=== PATIENT | female | born 1970 | race American Indian/Alaskan Native ===

== ENCOUNTER 2016-12-06 22:31 | Emergency (ER) | payer OTHER ==
--- NOTE | 2016-12-07 02:41 | Emergency Department Report ---
HPI - General Chief Complaint: Neck Pain/Injury Time Seen by Provider: 12/07/16 01:58 - HPI HPI: 46-year-old female presents to the ED complaining of right sided shoulder back pain for the past 2 weeks. She denies any trauma and states the pain is throbbing, aching in nature localized to her upper back region. She states pain is aggravated by pressing on. ED Past Medical Hx - Past Medical History Previous Medical History?: No - Surgical History Past Surgical History?: No - Social History Smoking Status: Never Smoker Substance Use Type: None - Medications Home Medications: Home Medications Medication Instructions Recorded Confirmed Last Taken Type Cyclobenzaprine [Flexeril] 10 mg PO QHS #20 tablet 12/07/16 Unknown Rx Naproxen [Naprosyn] 500 mg PO BID #30 tablet 12/07/16 Unknown Rx ED Review of Systems ROS: Stated complaint: NECK AND BACK PAIN Other details as noted in HPI Constitutional: denies: chills, fever Eyes: denies: eye pain, eye discharge, vision change ENT: denies: ear pain, throat pain Respiratory: denies: cough, shortness of breath, wheezing Cardiovascular: denies: chest pain, palpitations Endocrine: no symptoms reported Gastrointestinal: denies: abdominal pain, nausea, diarrhea Genitourinary: denies: urgency, dysuria, discharge Musculoskeletal: denies: back pain, joint swelling, arthralgia Skin: denies: rash, lesions Neurological: denies: headache, weakness, paresthesias Psychiatric: denies: anxiety, depression Hematological/Lymphatic: denies: easy bleeding, easy bruising Physical Exam - Physical Exam Vital Signs: Vital Signs 12/06/16 23:02 Temperature 97.9 F Pulse Rate 65 Respiratory 16 Rate Blood Pressure 117/87 [Right] O2 Sat by Pulse 100 Oximetry Physical Exam: GENERAL: Alert and oriented x3, no apparent distress, resting comfortable in the room on the bed, Normal Gait, atraumatic. HEAD: Head is normocephalic and a-traumatic. NECK: Supple. Non edematous, No lymphadenopathy or thyromegaly. No C-spine tenderness LUNGS: Symetrical with respiration, No wheezing, no rales or crackles, CTAB. HEART: S1, S2 present, regular rate and rhythm without murmur, no rubs, no gallops. Non tender to palpation EXTREMITIES/MUSCULOSKELETAL: No cyanosis, clubbing, rash, lesions or edema. Full ROM bilaterally. UE/LE Pulses 2+ bilaterally. LE and UE 5+ strength bilaterally, tenderness palpation of the scapular region right-sided, no spinal tenderness NEUROLOGIC: The patient is cooperative with no focal neurologic deficits. ED Course Vital Signs 12/06/16 23:02 Temperature 97.9 F Pulse Rate 65 Respiratory 16 Rate Blood Pressure 117/87 [Right] O2 Sat by Pulse 100 Oximetry ED Medical Decision Making - Medical Decision Making The old female presents with a showed a back sprain ED course: Patient to go home on trial of Motrin and muscle relaxants for pain. Discussed patient to apply heat therapy and defer from strenuous activities this couple of days. Discussed worsened symptoms return to ED. Discussed to follow up with primary care physician Discussed patient drowsiness effects of Flexeril and not to take while driving Patient is comfortable she is in no acute distress Vital signs are normal. Patient understands all instructions given and states she will follow up Discussed the patient is symptoms worsen to return to ED. Critical care attestation.: If time is entered above; I have spent that time in minutes in the direct care of this critically ill patient, excluding procedure time. ED Disposition Clinical Impression: Muscle strain of right upper back Qualifiers: Encounter type: initial encounter Qualified Code(s): S29.012A - Strain of muscle and tendon of back wall of thorax, initial encounter Disposition: -01 TO HOME OR SELFCARE Is pt being admited?: No Does the pt Need Aspirin: No Condition: Stable Instructions: Muscle Strain (ED), Heat Pack Application (ED), Trigger Point Pain (ED) Prescriptions: Cyclobenzaprine [Flexeril] 10 mg PO QHS #20 tablet Naproxen [Naprosyn] 500 mg PO BID #30 tablet Referrals: PRIMARY CARE, [Primary Care Provider] - 3-5 Days Forms: Accompanied Note, Work/School Release Form(ED) Time of Disposition: 02:42
[2016-12-07 04:01] VITALS: BP 112/69
== END 2016-12-07 04:01 | disposition home or self-care (01) ==
LOC: ED 22:31
DX: S29.012A Strain of muscle and tendon of back wall of thorax, initial encounter (principal); X58.XXXA Exposure to other specified factors, initial encounter; Y93.89 Activity, other specified; Y99.8 Other external cause status; Y92.89 Other specified places as the place of occurrence of the external cause
CPT/HCPCS: 99282

== ENCOUNTER 2017-02-20 11:54 | Emergency (ER) | payer SELFPAY ==
[2017-02-20 12:05] VITALS: BP 134/92
== END 2017-02-20 12:49 | disposition left against medical advice (07) ==
LOC: ED 11:54
DX: Z53.21 Procedure and treatment not carried out due to patient leaving prior to being seen by health care provider (principal)

== ENCOUNTER 2017-08-19 11:37 | Emergency (ER) | payer OTHER ==
[2017-08-19] MEDS ORDERED: NACL 0.9% 1000 ML IV ONE (15:21)
[2017-08-19] MEDS ORDERED: ZOFRAN IV ONE (15:22)
[2017-08-19] MEDS ORDERED: PEPCID IV ONE (15:22)
[2017-08-19] MEDS ORDERED: TORADOL IV ONE (15:22)
--- NOTE | 2017-08-19 15:24 | Emergency Department Report ---
Blank Doc - Documentation Documentation: Patient is a 47-year-old Female who is presenting with 3 days of upper abdominal pain nausea vomiting or fever. Patient also states she has diarrhea as well and now has some paresthesias in her feet. Brief physical exam patient is tachycardic and tachypneic is tender in the epigastrium. Patient is febrile. Suspected sepsis order set has been initiated and patient will receive IV fluids and nausea medicines meds CT abdomen and pelvis lab work is been ordered.
[2017-08-19 15:53] LABS: Hematocrit 37.1 % (30.3-42.9); Hemoglobin 12.5 gm/dl (10.1-14.3); Mean Corpuscular HGB Conc 34 % (30-34); Mean Corpuscular Hemoglobin 30 pg (28-32); Mean Corpuscular Volume 88 fl (79-97); Platelet Count 109 K/mm3 (140-440); Red Cell Distribution Width 14.5 % (13.2-15.2)
[2017-08-19] MEDS ORDERED: ZOSYN/NS 4.5GM/100ML 4.5 GM/100 ML VIAL IV ONE (16:00)
[2017-08-19 16:15] LABS: Albumin 3.7 g/dL (3.9-5)
[2017-08-19] MEDS ORDERED: K-DUR PO ONE (16:39)
[2017-08-19 16:40] LABS: Bacteria,Urine 2+ /HPF (Negative); Bilirubin,Urine NEG (Negative); Blood,Urine LG (Negative); Color,Urine Red (Yellow)
[2017-08-19 16:42] LABS: WBC,Urine > 182.0 /HPF (0.0-6.0)
[2017-08-19] MEDS ORDERED: MOTRIN PO ONE (17:15)
--- NOTE | 2017-08-19 17:23 | History and Physical Report ---
History of Present Illness Chief complaint: My stomach hurts History of present illness: 47 YO Female with Bipolar Disorder, Depression, presents to ED for evaluation. Pt states that she has experienced pain, nausea, and multiple episodes of vomiting over the past 3 days. Pt states that pain is 8/10, colicky, worse with movement. Pt seen and evaluated in ED and found to have sepsis, and pyelonephritis secondary to a Left Obstruction ureteric stone with concomitant hydronephrosis. Pt treated wit IV antibiotics. No urology coverage at this time. Pt requires urologic evaluation and intervention. Pt seen and evaluated and informed of diagnosis, and treatment plan. Patient denies fever, chills, chest pain, shortness of breathe, back pain,palpitations, hematuria, BRBPR, headache, trauma, productive cough or recent ill contacts. Past History Past Medical History: other (bipolar, ) Past Surgical History: Social history: single. denies: smoking, alcohol abuse, prescription drug abuse Family history: hypertension Medications and Allergies Allergies Allergy/AdvReac Type Severity Reaction Status Date / Time No Known Allergies Allergy Verified 08/19/17 11:48 Home Medications Medication Instructions Recorded Confirmed Last Taken Type Cyclobenzaprine [Flexeril] 10 mg PO QHS #20 tablet 12/07/16 Unknown Rx Naproxen [Naprosyn] 500 mg PO BID #30 tablet 12/07/16 Unknown Rx Review of Systems Constitutional: no weight loss, no weight gain, no fever, no chills Ears, nose, mouth and throat: no ear pain, no ear discharge, no tinnitis, no decreased hearing, no nose pain Breasts: no change in shape, no swelling, no mass Cardiovascular: no chest pain, no orthopnea, no palpitations, no rapid/ irregular heart beat, no edema, no syncope Respiratory: no cough, no cough with sputum, no excessive sputum, no hemoptysis , no shortness of breath Gastrointestinal: abdominal pain, nausea, vomiting Genitourinary Female: flank pain (Left), no pelvic pain, no menorrhagia, no dysuria, no urgency, no stress incontinence, no incomplete emptying Rectal: no pain, no incontinence, no bleeding, no itching Musculoskeletal: no neck stiffness, no neck pain, no shooting arm pain, no arm numbness/tingling, no low back pain, no shooting leg pain Integumentary: no rash, no pruritis, no redness, no sores, no wounds, no jaundice Neurological: no head injury, no transient paralysis, no paralysis, no weakness , no tingling Psychiatric: no anxiety, no sleep disturbances, no insomnia, no hypersomnia, no change in appetite, no change in libido Endocrine: no cold intolerance, no heat intolerance, no polyphagia, no excessive thirst, no polydipsia, no polyuria Hematologic/Lymphatic: no easy bruising, no easy bleeding, no lymphadenopathy, no lymphedema Allergic/Immunologic: no urticaria, no allergic rhinitis, no wheezing, no persistent infections, no anaphylaxis, no angioedema Exam - Constitutional Vitals: Temp Pulse Resp BP Pulse Ox 102.9 F H 104 H 16 111/54 100 08/19/17 16:24 08/19/17 16:24 08/19/17 16:24 08/19/17 16:24 08/19/17 16:24 General appearance: Present: mild distress - EENT Eyes: Present: PERRL ENT: hearing intact, clear oral mucosa - Neck Neck: Present: supple, normal ROM - Respiratory Respiratory effort: normal Respiratory: bilateral: CTA - Cardiovascular Heart Sounds: Present: S1 & S2. Absent: rub, click - Extremities Extremities: pulses symmetrical, No edema Peripheral Pulses: abnormal (capillary refill greater than 3.6 seconds.) - Abdominal General gastrointestinal: Present: soft, tender, non-distended, normal bowel sounds. Absent: mass, hernia Female genitourinary: Present: normal - Integumentary Integumentary: Present: clear, warm, dry - Musculoskeletal Musculoskeletal: gait normal, strength equal bilaterally - Psychiatric Psychiatric: appropriate mood/affect, intact judgment & insight - Neurologic Neurologic: CNII-XII intact, moves all extremities Results - Labs CBC & Chem 7: 08/19/17 15:26 08/19/17 15:26 Labs: Abnormal lab results 08/19/17 08/19/17 08/19/17 Range/Units 15:26 15:26 16:11 WBC 23.4 H (4.5-11.0) K/mm3 Plt Count 109 L (140-440) K/mm3 Sodium 134 L (137-145) mmol/L Potassium 3.2 L (3.6-5.0) mmol/L Chloride 93.8 L (98-107) mmol/L Glucose 109 H (65-100) mg/dL Total Bilirubin 1.40 H (0.1-1.2) mg/dL AST 67 H (5-40) units/L ALT 63 H (7-56) units/L Total Protein 8.3 H (6.3-8.2) g/dL Albumin 3.7 L (3.9-5) g/dL Lipase 9 L (13-60) units/L Urine WBC (Auto) > 182.0 H (0.0-6.0) /HPF Assessment and Plan - Patient Problems (1) Sepsis Current Visit: Yes Status: Acute Qualifiers: Sepsis type: sepsis due to unspecified organism Qualified Code(s): A41.9 - Sepsis, unspecified organism Plan to address problem: IV antibiotics, IVF, supportive care. Pending transfer to urology intervention. (2) Urinary obstruction Current Visit: Yes Status: Acute Plan to address problem: Urology evaluation, and possible placement of percutaneous nephrostomy tube.
--- NOTE | 2017-08-19 17:30 | Cat Scan Report ---
FINAL REPORT PROCEDURE: CT ABDOMEN PELVIS W CON TECHNIQUE: Computerized axial tomography of the abdomen and pelvis was performed after the IV injection of iodinated nonionic contrast. HISTORY: Fever/Sepsis COMPARISON: No prior studies are available for comparison. FINDINGS: Visualized lower thorax: No significant abnormality. Liver: Normal size and attenuation. Spleen: Normal size and attenuation. Gallbladder and biliary system: Normal. Pancreas: Normal. Adrenals: Normal. Kidneys: There is irregular enhancement of the left renal cortex with moderate left hydronephrosis and hydroureter down to a 8 x 5 millimeter stone in the proximal left ureter. The right collecting system is a normal appearance.. GI tract: No obstruction. No ileus or enteritis. The cecum, appendix and colon are normal. Lymph nodes and mesentery: Normal. Vasculature: Normal. Bladder: Normal. Reproductive organs: The uterus is enlarged with suspected fibroid formation. No ovarian masses are noted on this study.. Peritoneum: Moderate fluid lower pelvis.. Musculoskeletal structures: Mild degenerative changes of the lumbar spine.. Other: Small fat containing left inguinal hernia.. IMPRESSION: Moderate left hydronephrosis and proximal hydroureter down to an 8 x 5 millimeter stone in the proximal left ureter. Irregular enhancement of the left renal cortex may represent early pyelonephritis. No evidence of intestinal obstruction. The appendix is normal. The uterus is enlarged with suspected fibroid formation.
[2017-08-19 17:35] LABS: HCG Qualitative,Urine Negative (Negative)
[2017-08-19 17:42] LABS: Basophils % (Manual) 0 % (0.0-1.8); Eosinophils % (Manual) 0 % (0.0-4.3); RBC Morphology Normal; Total Cells Counted 100
--- NOTE | 2017-08-19 17:42 | Emergency Department Report ---
ED Abdominal Pain HPI - General Chief Complaint: Abdominal Pain Stated Complaint: STOMACH PAIN Time Seen by Provider: 08/19/17 15:12 Source: patient Mode of arrival: Wheelchair Limitations: No Limitations - History of Present Illness Initial Comments: This is a 47-year-old female nontoxic, well nourished in appearance, no acute signs of distress presents to the ED with c/o of upper abdominal pain with nausea, vomiting and fever x2 days. Patient describes abdominal pain as cramping and aching with level of 8/10. Patient also stated had episodes of diarrhea and dysuria. Patient denies any chest pain, shortness of breathe, back pain, numbness, tingling, headache, stiff neck. Patient denies any recent travels or long car rides. Patient denies any allergies. Denies PMH. MD Complaint: abdominal pain -: days(s) (2) Location: diffuse Radiation: none Migration to: no migration Severity: mild Severity scale (0 -10): 8 Quality: cramping, aching Consistency: constant Improves With: nothing Worsens With: nothing Associated Symptoms: nausea, vomiting, diarrhea. denies: fever, chills, constipation, dysuria, hematemesis, hematochezia, melena, hematuria, anorexia, syncope - Related Data Previous Rx's Medication Instructions Recorded Last Taken Type Cyclobenzaprine [Flexeril] 10 mg PO QHS #20 tablet 12/07/16 Unknown Rx Naproxen [Naprosyn] 500 mg PO BID #30 tablet 12/07/16 Unknown Rx Allergies Allergy/AdvReac Type Severity Reaction Status Date / Time No Known Allergies Allergy Verified 08/19/17 11:48 ED Review of Systems ROS: Stated complaint: STOMACH PAIN Other details as noted in HPI Constitutional: denies: chills, fever Eyes: denies: eye pain, eye discharge, vision change ENT: denies: ear pain, throat pain Respiratory: denies: cough, shortness of breath, wheezing Cardiovascular: denies: chest pain, palpitations Endocrine: no symptoms reported Gastrointestinal: abdominal pain, nausea, vomiting, diarrhea. denies: constipation Genitourinary: denies: urgency, dysuria, discharge Musculoskeletal: denies: back pain, joint swelling, arthralgia Skin: denies: rash, lesions Neurological: denies: headache, weakness, paresthesias Psychiatric: denies: anxiety, depression Hematological/Lymphatic: denies: easy bleeding, easy bruising ED Past Medical Hx - Past Medical History Hx Psychiatric Treatment: Yes (depression, bi-polar, schizophrenia) - Surgical History Additional Surgical History: - Social History Smoking Status: Never Smoker Substance Use Type: None - Medications Home Medications: Home Medications Medication Instructions Recorded Confirmed Last Taken Type Cyclobenzaprine [Flexeril] 10 mg PO QHS #20 tablet 12/07/16 Unknown Rx Naproxen [Naprosyn] 500 mg PO BID #30 tablet 12/07/16 Unknown Rx ED Physical Exam - General Limitations: No Limitations General appearance: alert, in no apparent distress - Head Head exam: Present: atraumatic, normocephalic - Eye Eye exam: Present: normal appearance Pupils: Present: normal accommodation - ENT ENT exam: Present: normal exam, mucous membranes moist - Neck Neck exam: Present: normal inspection, full ROM. Absent: tenderness, meningismus - Respiratory Respiratory exam: Present: normal lung sounds bilaterally. Absent: respiratory distress, wheezes, rales, rhonchi, stridor, chest wall tenderness, accessory muscle use, decreased breath sounds, prolonged expiratory - Cardiovascular Cardiovascular Exam: Present: regular rate, normal rhythm, tachycardia, normal heart sounds. Absent: irregular rhythm, systolic murmur, diastolic murmur, rubs , gallop - GI/Abdominal GI/Abdominal exam: Present: soft, tenderness (diffuse), normal bowel sounds. Absent: distended, guarding, rebound, rigid, diminished bowel sounds - Rectal Rectal exam: Present: deferred - Extremities Exam Extremities exam: Present: normal inspection, full ROM, normal capillary refill. Absent: tenderness - Back Exam Back exam: Present: normal inspection, full ROM. Absent: tenderness, CVA tenderness (R), CVA tenderness (L) - Neurological Exam Neurological exam: Present: alert, oriented X3, normal gait - Psychiatric Psychiatric exam: Present: normal affect, normal mood - Skin Skin exam: Present: warm, dry, intact, normal color. Absent: rash ED Course Vital Signs 08/19/17 08/19/17 08/19/17 11:50 16:09 16:24 Temperature 100.8 F H 102.9 F H Pulse Rate 108 H 104 H Respiratory 20 18 16 Rate Blood Pressure 133/109 Blood Pressure 111/54 [Right] O2 Sat by Pulse 98 98 100 Oximetry 08/19/17 17:55 Temperature 100.2 F H Pulse Rate 99 H Respiratory 16 Rate Blood Pressure Blood Pressure 108/70 [Right] O2 Sat by Pulse 98 Oximetry - Reevaluation(s) Reevaluation #1: 08/19/17 17:54 Patient is speaking in full sentences with no signs of distress noted. - Consultations Consultation #1: 08/19/17 17:55 Patient has been consulted with Dr. Zavala about patient history, physical exam , and labs and examined and screened patient and agrees to ED plan of care. Consultation #2: 08/19/17 17:54 Dr. Cox from [facility] was consulted and accepts patient to his services. Pending transfer. Patient is stable with no distress. ED Medical Decision Making - Lab Data Result diagrams: 08/19/17 15:26 08/19/17 15:26 - Medical Decision Making 47-year-old female that presents with hydronephrosis. Patient is stable and was examined by me and Dr. Zavala. Code Sepsis was initiated right away when Dr. Zavala examined patient. Patient received Normal saline and antibitocs in the ED. UA obtained. Patient was discussed with Dr. Cox from [facility] and accepts patient to his services. Patient was put on radiation monitor immediately. At time of transfer, the patient does not seem toxic or ill in appearance. No acute signs of distress noted. Patient agrees to transfer treatment plan of care. No further questions noted by the patient. Critical care attestation.: If time is entered above; I have spent that time in minutes in the direct care of this critically ill patient, excluding procedure time. ED Disposition Clinical Impression: Pyelonephritis Hydronephrosis Qualifiers: Hydronephrosis type: unspecified Qualified Code(s): N13.30 - Unspecified hydronephrosis Sepsis Qualifiers: Sepsis type: sepsis due to unspecified organism Qualified Code(s): A41.9 - Sepsis, unspecified organism Disposition: DC/TX-70 ANOTHER TYPE [facility]THCARE Is pt being admited?: No Condition: Stable Referrals: PRIMARY CARE, [Primary Care Provider] - 3-5 Days
[2017-08-19 20:04] VITALS: BP 115/83
== END 2017-08-19 20:20 | disposition other institution (70) ==
LOC: ED 11:37
DX: A41.9 Sepsis, unspecified organism (principal); N12 Tubulo-interstitial nephritis, not specified as acute or chronic; N13.30 Unspecified hydronephrosis; F31.9 Bipolar disorder, unspecified; F20.9 Schizophrenia, unspecified
CPT/HCPCS: 36415; 74177; 80053; 81001; 81025; 82140; 83690; 85007; 85025; 86403; 87040; 96361; 96365; 96375; 99285; J1885; J2405; J2543; J7030; Q9967; 87186

== ENCOUNTER 2020-05-29 12:52 | Emergency (ER) | payer SELFPAY ==
[2020-05-29 13:33] VITALS: BP 114/72
--- NOTE | 2020-05-29 15:11 | Emergency Department Report ---
ED General Adult HPI - General Chief complaint: Extremity Injury, Upper Stated complaint: LEFT ARM PAIN Time Seen by Provider: 05/29/20 14:21 Source: patient Mode of arrival: Ambulatory Limitations: No Limitations - History of Present Illness Initial comments: Patient is a 49-year-old female presents emergency room complaints of left shoulder pain that began 3 to 4 days ago. She states that she had this once in the past and it was gas. She denies any fall or injury. She denies any numbness, weakness, chest pain, shortness of breath, diaphoresis, nausea, vomiting. Has a past medical history of schizophrenia and bipolar. No allergies to medications. She denies any SI or HI. She is a former smoker. - Related Data Previous Rx's Medication Instructions Recorded Last Taken Type Cyclobenzaprine [Flexeril] 10 mg PO QHS #20 tablet 12/07/16 Unknown Rx Naproxen [Naprosyn] 500 mg PO BID #30 tablet 12/07/16 Unknown Rx Naproxen 375 mg PO BID PRN #14 tablet. 05/29/20 Unknown Rx methOCARBAMOL [Robaxin TAB] 500 mg PO BID PRN #14 tab 05/29/20 Unknown Rx Allergies Allergy/AdvReac Type Severity Reaction Status Date / Time No Known Allergies Allergy Verified 08/19/17 11:48 ED Review of Systems ROS: Stated complaint: LEFT ARM PAIN Other details as noted in HPI Comment: All other systems reviewed and negative ED Past Medical Hx - Past Medical History Previous Medical History?: Yes Hx Psychiatric Treatment: Yes (depression, bi-polar, schizophrenia) - Surgical History Additional Surgical History: - Social History Smoking Status: Never Smoker Substance Use Type: None - Medications Home Medications: Home Medications Medication Instructions Recorded Confirmed Last Taken Type Cyclobenzaprine [Flexeril] 10 mg PO QHS #20 tablet 12/07/16 Unknown Rx Naproxen [Naprosyn] 500 mg PO BID #30 tablet 12/07/16 Unknown Rx Naproxen 375 mg PO BID PRN #14 tablet. 05/29/20 Unknown Rx methOCARBAMOL [Robaxin TAB] 500 mg PO BID PRN #14 tab 05/29/20 Unknown Rx ED Physical Exam - General Limitations: No Limitations General appearance: alert, in no apparent distress - Head Head exam: Present: atraumatic, normocephalic - Eye Eye exam: Present: normal appearance - ENT ENT exam: Present: mucous membranes moist - Respiratory Respiratory exam: Present: normal lung sounds bilaterally. Absent: respiratory distress, wheezes, rales, rhonchi, stridor, chest wall tenderness, accessory mu scle use, decreased breath sounds, prolonged expiratory - Cardiovascular Cardiovascular Exam: Present: regular rate, normal rhythm, normal heart sounds. Absent: systolic murmur, diastolic murmur, rubs, gallop - Extremities Exam Extremities exam: Present: other (no bony ttp of the BUE, FROM of the BUE, no deformity, no ecchymosis, no edema, no skin changes, no sulcus sign, clavicles are equal, no clavicular ttp, neurovascularly intact) - Neurological Exam Neurological exam: Present: alert, oriented X3, CN II-XII intact, normal gait. Absent: motor sensory deficit - Psychiatric Psychiatric exam: Present: normal affect, normal mood - Skin Skin exam: Present: warm, dry, intact ED Course Vital Signs 05/29/20 13:27 Temperature 98 F Pulse Rate 68 Respiratory 18 Rate Blood Pressure 114/72 O2 Sat by Pulse 98 Oximetry ED Medical Decision Making - Lab Data Result diagrams: 05/29/20 15:18 05/29/20 15:18 Lab Results 05/29/20 05/29/20 Range/Units 15:18 15:18 WBC 4.0 L (4.5-11.0) K/mm3 RBC 3.82 (3.65-5.03) M/mm3 Hgb 11.8 (10.1-14.3) gm/dl Hct 35.5 (30.3-42.9) % MCV 93 (79-97) fl MCH 31 (28-32) pg MCHC 33 (30-34) % RDW 13.7 (13.2-15.2) % Plt Count 148 (140-440) K/mm3 Lymph % (Auto) 41.1 H (13.4-35.0) % Mclennan % (Auto) 8.7 H (0.0-7.3) % Eos % (Auto) 1.6 (0.0-4.3) % Baso % (Auto) 0.5 (0.0-1.8) % Lymph # (Auto) 1.6 (1.2-5.4) K/mm3 Mclennan # (Auto) 0.3 (0.0-0.8) K/mm3 Eos # (Auto) 0.1 (0.0-0.4) K/mm3 Baso # (Auto) 0.0 (0.0-0.1) K/mm3 Seg Neutrophils % 48.1 (40.0-70.0) % Seg Neutrophils # 1.9 (1.8-7.7) K/mm3 Sodium 142 (137-145) mmol/L Potassium 3.8 (3.6-5.0) mmol/L Chloride 105.8 (98-107) mmol/L Carbon Dioxide 32 H (22-30) mmol/L Anion Gap 8 mmol/L BUN 10 (7-17) mg/dL Creatinine 0.8 (0.6-1.2) mg/dL Estimated GFR > 60 ml/min BUN/Creatinine Ratio 13 % Glucose 70 (65-100) mg/dL Calcium 8.9 (8.4-10.2) mg/dL Total Bilirubin 0.20 (0.1-1.2) mg/dL AST 12 (5-40) units/L ALT 6 L (7-56) units/L Alkaline Phosphatase 44 (35-129) units/L Troponin T < 0.010 (0.00-0.029) ng/mL Total Protein 7.0 (6.3-8.2) g/dL Albumin 4.1 (3.9-5) g/dL Albumin/Globulin Ratio 1.4 % - EKG Data EKG shows normal: sinus rhythm, axis, intervals, QRS complexes Rate: normal - EKG Data 05/29/20 16:26 non specific T wave inversion in V1, V2, V3 no STEMI - Radiology Data Radiology results: report reviewed CXR no acute findings - Medical Decision Making Patient is a 49-year-old female presents emergency room complaints of left shoulder pain that began 3 to 4 days ago. She states that she had this once in the past and it was gas. She denies any fall or injury. She denies any numbness, weakness, chest pain, shortness of breath, diaphoresis, nausea, vomiting. Has a past medical history of schizophrenia and bipolar. No allergies to medications. She denies any SI or HI. She is a former smoker. vitals are normal. no abnormality on physical exam as documented in chart. labs are normal. troponin is negative. CXR no acute findings. EKG non specific T wave inversion in V1, V2, V3, no STEMI. pts shoulder/chest pain is atypical, do not suspect ACS. no signs of PNA. low risk based on wells criteria for PE, PE unlikely. heart score is 1, low risk for cardiac event. pt given prescription for naproxen and robaxin. discussed the importance of follow up and strict r eturn precautions. advised pt Please take medication as prescribed as needed. do not drive or operate heavy machinery while taking muscle relaxer robaxin. Follow-up with primary care doctor for reexamination. Return to emergency room immediately for any new or worsening symptoms. Critical care attestation.: If time is entered above; I have spent that time in minutes in the direct care of this critically ill patient, excluding procedure time. ED Disposition Clinical Impression: Left shoulder pain Qualifiers: Chronicity: acute Qualified Code(s): M25.512 - Pain in left shoulder Disposition: DC- TO HOME OR SELFCARE Is pt being admited?: No Does the pt Need Aspirin: No Condition: Stable Instructions: Shoulder Pain Additional Instructions: Please take medication as prescribed as needed. do not drive or operate heavy m achinery while taking muscle relaxer robaxin. Follow-up with primary care doctor for reexamination. Return to emergency room immediately for any new or worsening symptoms. Prescriptions: Naproxen 375 mg PO BID PRN #14 tablet. PRN Reason: pain methOCARBAMOL [Robaxin TAB] 500 mg PO BID PRN #14 tab PRN Reason: pain Referrals: ALBINO HOWARD MD [Primary Care Provider] - 2-3 Days ANGELINA DELGADO MD [Staff Physician] - 2-3 Days [facility] [Provider Group] - 2-3 Days [facility], [LAB/CONTRACT] - 2-3 Days [facility] [Outside] - 2-3 Days Time of Disposition: 16:27 Print Language: SYRIAN
--- NOTE | 2020-05-29 15:18 | XRay Report ---
CHEST 2 VIEWS INDICATION / CLINICAL INFORMATION: Left shoulder and chest pain. COMPARISON: None available. FINDINGS: SUPPORT DEVICES: None. HEART / MEDIASTINUM: No significant abnormality. LUNGS / PLEURA: No significant pulmonary or pleural abnormality. No pneumothorax. ADDITIONAL FINDINGS: No significant additional findings. IMPRESSION: 1. No acute findings. Signer Name: Kobe Sims MD Signed: 05/29/2020 3:14 PM Workstation Name: [id number]
[2020-05-29 16:00] LABS: Basophils % (Auto) 0.5 % (0.0-1.8); Eosinophils # (Auto) 0.1 K/mm3 (0.0-0.4); Eosinophils % (Auto) 1.6 % (0.0-4.3); Hematocrit 35.5 % (30.3-42.9); Hemoglobin 11.8 gm/dl (10.1-14.3); Lymphocytes # (Auto) 1.6 K/mm3 (1.2-5.4); Lymphocytes % (Auto) 41.1 % (13.4-35.0); Mean Corpuscular HGB Conc 33 % (30-34); Mean Corpuscular Volume 93 fl (79-97); Monocytes # (Auto) 0.3 K/mm3 (0.0-0.8); Monocytes % (Auto) 8.7 % (0.0-7.3); Platelet Count 148 K/mm3 (140-440); Red Blood Count 3.82 M/mm3 (3.65-5.03); Red Cell Distribution Width 13.7 % (13.2-15.2)
[2020-05-29 16:25] LABS: Alanine Aminotransferase 6 units/L (7-56); Albumin 4.1 g/dL (3.9-5); BUN/Creatinine Ratio 13; Blood Urea Nitrogen 10 mg/dL (7-17); Calcium 8.9 mg/dL (8.4-10.2); Hemolysis Index 1
== END 2020-05-29 16:36 | disposition home or self-care (01) ==
LOC: ED 12:52
DX: M25.512 Pain in left shoulder (principal); F25.0 Schizoaffective disorder, bipolar type; Z79.899 Other long term (current) drug therapy; Z98.890 Other specified postprocedural states
CPT/HCPCS: 36415; 71046; 80053; 84484; 85025; 93005